=== PATIENT | male | born 1960 | race Caucasian/White ===

== ENCOUNTER 2017-06-05 21:04 | Emergency (ER) | payer OTHER ==
[~2017-06-05] VITALS: Ht 172.7 cm; Wt 89.1 kg
--- NOTE | ~2017-06-05 | CR63 ---
[facility]. [facility] A Service of [facility] & [facility] RADIOLOGY TEXT RESULTS PATIENT: TRUDY BOOKER LOCATION: SED : 58 UNIT #: [id number] AGE: [address]: Brandon Meza DO SEX: M ORDER DR: [id number] [place] [id number] E MR#: [id number] Acc #: [id number] NAME: TRUDY BOOKER : 1960 SEX: M STUDY DATE/TIME: 06/05/2017 22:45 UNIT: SED ROOM: STUDY DESCRIPTION: CR Chest 2 View Attending Physician: Brandon Meza Ordering Physician: Brandon Meza Primary Care Physician: Yuan Chopra M.D. MEDICAL IMAGING REPORT This report is preliminary unless electronic signature is present. EXAM Chest x-ray, 06/05/2017 HISTORY 56-year-old male in the ED complaining of 1-month history of cough, congestion and weakness. TECHNIQUE PA and lateral upright chest series. FINDINGS Heart size and pulmonary vascularity are within normal limits. The lungs are expanded and clear. No visible pulmonary infiltrate or pleural effusion. Surgical clips at the esophagogastric junction and in the upper abdomen. No change since 11/06/2016. IMPRESSION No active disease. No change since 11/06/2016. Dictated by... Luis Hanley M.D. THIS IS AN ELECTRONICALLY VERIFIED REPORT Luis Hanley M.D. at 06/06/2017 5:58 AM CATALINO/renard TD: 06/06/2017 03:56 JOB #: [id number] MEDICAL IMAGING REPORT Page 1 of 1
[~2017-06-05 21:04] MED LIST: ACETAMINOPHEN PO; ALBUTEROL; ALBUTEROL MININEB NEB; ALBUTEROL17 GM INH; ARTANE PO; AZITHROMYCIN250 MG PO; CERTAGEN PO; CLARITIN10 M3 PO; CLARITIN10 MG PO; HYCODAN60 ML 5MG/ PO; IBUPROFEN PO; LORTAB 7.5-5001 TAB PO; MEDROL DOSEPAK4 MG PO; NEURONTIN PO; NEXIUM PO; PATIENT'S PHARMACY; PAXIL; PHYSICIAN; PREVACID 24HR15 MG PO; SEROQUEL PO; SPIRIVA18 MCG PO; TRAMADOL HCL50 M1 PO; TUSSIONEX PENN473 ML PO; ULTRAM PO; VITAMIN B COMPLEX; ZITHROMAX PO; ZOLOFT PO; [UNRECOGNIZED DRUG - OTHER]
[2017-06-05 21:44] LABS: BASOPHIL# 0.1 X10e3 (0-0.3); BASOPHIL% 0.7 % (0-2.5); EOSINOPHIL# 0.1 X10e3 (0-0.7); EOSINOPHIL% 0.8 % (0.0-7.0); HEMATOCRIT 43.3 % (38.0-50.0); LYMPHOCYTE# 1.5 X10e3 (1.0-3.5); LYMPHOCYTE% 18.6 % (17.0-45.0); MEAN CELL VOLUME 88.4 FL (83-96); MEAN CORPUSCULAR HEMOGLOBIN 30.6 PG (28-34); MEAN CORPUSCULAR HGB CONC 34.6 g/dL (30-36); MEAN PLATELET VOLUME 8.6 FL (6.5-11.5); MONOCYTE# 0.4 X10e3 (0-1.0); NEUTROPHIL# 5.9 X10e3 (1.5-7.1); NEUTROPHIL% 74.9 % (40-75); PLATELET COUNT 179 X10e3 (140-420); RED BLOOD COUNT 4.91 X10e (3.90-5.60); WHITE BLOOD COUNT 7.9 X10e3 (4.0-10.5)
[2017-06-05 21:46] LABS: DIFF IND NO
[2017-06-05 22:00] LABS: POC - CKMB 1.3 ng/mL (0.0-7.9); POC - TROPONIN <0.05 ng/mL (<=0.05)
[2017-06-05 22:01] LABS: ALBUMIN SERUM 4.8 g/dL (3.5-5.0); BILIRUBIN, DIRECT 0.2 mg/dL (0.0-0.2); BILIRUBIN,INDIRECT 1.5 mg/dL (0.0-0.9); BILIRUBIN,TOTAL 1.7 mg/dL (0.2-2.0); CALCIUM SERUM 9.3 mg/dL (8.4-10.2); GLOM FILT RATE Estimated 83.2 mL/min (>60); POTASSIUM 3.5 mmol/L (3.5-5.1); PROTEIN TOTAL SERUM 7.5 g/dL (6.0-8.3)
== END 2017-06-05 23:54 | disposition home or self-care (01) ==
LOC: SED 21:04
PROVIDERS: Emergency Medicine
DX: J44.1 Chronic obstructive pulmonary disease with (acute) exacerbation (principal); F17.210 Nicotine dependence, cigarettes, uncomplicated; Z79.899 Other long term (current) drug therapy; Z88.0 Allergy status to penicillin; Z88.8 Allergy status to other drugs, medicaments and biological substances
CPT/HCPCS: 36415; 71020; 80048; 80076; 82553; 84484; 85025; 87040; 94640; 96361; 96374; 99284; J2930